=== PATIENT | female | born 1980 | race Caucasian/White ===

== ENCOUNTER 2016-10-20 14:19 | Emergency (ER) | payer MEDICAID ==
[~2016-10-20] VITALS: Ht 154.9 cm; Wt 55.8 kg
[~2016-10-20 14:19] MED LIST: DEPO SHOT; UNK ABX
[2016-10-20 14:22] VITALS: BP 116/62
--- NOTE | 2016-10-20 16:49 | NUR ---
36 YO FEMALE BIB SELF FOR LOW BACK PAIN RADIATING TO FRONT. DENIES N/V/D; SKIN IS PINK/WARM/DRY; AAOX4 WITH EVEN AND STEADY GAIT; LUNGS CLEAR BL; HR EVEN AND REGULAR; PT DENIES ANY FEVER, CP, SOB, OR COUGH AT THIS TIME; PATIENT STATES PAIN OF 9/10 AT THIS TIME; VSS; PATIENT POSITIONED FOR COMFORT; HOB ELEVATED; BEDRAILS UP X2; BED DOWN. ER MD MADE AWARE OF PT STATUS.
--- NOTE | 2016-10-20 19:15 | NUR ---
REPORT RECEIVED FROM RAHEEM MIRANDA.
--- NOTE | 2016-10-20 19:16 | NUR ---
REPORT GIVEN TO RAHEEM BISWAS
[2016-10-20] MEDS ORDERED: ACETAMINOPHEN EXTRA STRENGTH 500 MG TAB PO ONE (19:30)
[2016-10-20 19:41] VITALS: BP 105/67
--- NOTE | 2016-10-20 19:41 | NUR ---
Patient discharged with v/s stable. Written and verbal after care instructions given and explained. Patient alert, oriented and verbalized understanding of instructions. Ambulatory with steady gait. All questions addressed prior to discharge. ID band removed. Patient advised to follow up with PMD. Rx of TYLENOL AND MULTI VIT given. Patient educated on indication of medication including possible reaction and side effects. Opportunity to ask questions provided and answered.
== END 2016-10-20 19:41 | disposition home or self-care (01) ==
LOC: MED 14:19
DX: O20.0 Threatened abortion (principal); Z3A.01 Less than 8 weeks gestation of pregnancy

== ENCOUNTER 2018-01-26 12:47 | Emergency (ER) | payer MEDICAID ==
[~2018-01-26] VITALS: Ht 160 cm; Wt 55.8 kg
[2018-01-26 12:50] VITALS: BP 104/68
--- NOTE | 2018-01-26 12:55 | NUR ---
PT AMBULATED TO BED 1
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
[2018-01-26] MEDS ORDERED: KETOROLAC 30 MG/ML VIAL IVP ONE (13:40)
[2018-01-26] MEDS ORDERED: ONDANSETRON 4 MG/2 ML VIAL IVP ONE (13:40)
[2018-01-26] MEDS ORDERED: MORPHINE SULFATE 2 MG/ML SYR IVP ONE (13:40)
[2018-01-26] MEDS ORDERED: MORPHINE SULFATE 4 MG/ML SYR ONE (13:54)
[2018-01-26] MEDS: NACL 0.9% 1,000 ML IV SCH ×2 (14:24→15:52)
[2018-01-26 14:28] LABS: BASOPHILS % (AUTO) 0.4 % (0.0-2.0); EOSINOPHILS # (AUTO) 0.1 K/uL (0-0.4); EOSINOPHILS % (AUTO) 3.3 % (0.0-4.0); HEMATOCRIT 39.3 % (36-48); LYMPHOCYTES # (AUTO) 0.8 K/uL (2.5-16.5); LYMPHOCYTES % (AUTO) 18.2 % (20.5-51.1); MEAN CORPUSCULAR HEMOGLOBIN 28 pg (27-31); MEAN CORPUSCULAR HGB CONC 33 g/dL (33-37); MEAN CORPUSCULAR VOLUME 83.3 fL (80-94); MONOCYTES # (AUTO) 0.2 K/uL (0.8-1.0); MONOCYTES % (AUTO) 5.6 % (1.7-9.3); NEUTROPHILS # (AUTO) 3.1 K/uL (1.8-7.7); NEUTROPHILS % (AUTO) 72.5 % (42.2-75.2); PLATELET COUNT (AUTO) 146 K/uL (140-450); RED BLOOD CELL COUNT(AUTO) 4.72 MIL/uL (4.20-5.40); RED CELL DISTRIBUTION WIDTH 13.9 % (11.6-13.7); WHITE BLOOD COUNT (AUTO) 4.2 K/uL (4.8-10.8)
[2018-01-26 14:38] LABS: APPEARANCE,URINE CLEAR (CLEAR); BILIRUBIN,URINE NEGATIVE (NEGATIVE); BLOOD, URINE NEGATIVE (NEGATIVE); COLOR,URINE YELLOW (YELLOW); LEUKOCYTE ESTERASE ,URINE NEGATIVE (NEGATIVE); NITRITE, URINE NEGATIVE (NEGATIVE); UGLUCOSE NEGATIVE (NEGATIVE)
[2018-01-26 14:39] LABS: ANION GAP 11.2 (8-16); CARBON DIOXIDE 28.2 mmol/L (21-32); CREATININE 0.9 mg/dL (0.6-1.3); POTASSIUM 4.4 mmol/L (3.5-5.1)
[2018-01-26 14:45] LABS: ALBUMIN 4.2 g/dL (3.4-5.0); TOTAL BILIRUBIN 0.5 mg/dL (0.0-1.0)
[2018-01-26 15:45] LABS: BARBITURATE, URINE NEG. ng/ml (NEG <=200); BENZODIAZEPINE, URINE NEG. ng/mL (NEG <=200); CANNABINOID, URINE NEG. ng/mL (NEG <=50); COCAINE, URINE NEG. ng/mL (NEG <=300); OPIATE, URINE NEG. ng/mL (NEG <=2000); PHENCYCLIDINE SCREEN,URINE NEG. ng/mL (NEG <=25)
[2018-01-26] MEDS ORDERED: LACTULOSE 20 GM/30 ML UDC PO ONE (15:45)
[2018-01-26 16:15] VITALS: BP 96/62
--- NOTE | 2018-01-26 16:18 | NUR ---
Patient discharged with v/s stable. Written and verbal after care instructions given and explained. Patient alert, oriented and verbalized understanding of instructions. Ambulatory with steady gait. All questions addressed prior to discharge. ID band removed. Patient advised to follow up with PMD. Rx of reglan and colace given. Patient educated on indication of medication including possible reaction and side effects. Opportunity to ask questions provided and answered.
--- NOTE | 2018-02-03 13:16 | NUR ---
EDIT START AND END TIMES FOR NS INFUSION ON 01/26/2018: NS START TIME 1410 EVALUATED AT 1430 END TIME 1600, TOTAL AMOUNT INFUSED 1000ML
== END 2018-01-26 16:18 | disposition home or self-care (01) ==
LOC: MED 12:47
DX: K59.00 Constipation, unspecified (principal); K29.70 Gastritis, unspecified, without bleeding; R10.84 Generalized abdominal pain
CPT/HCPCS: 36415; 74176; 76705; 80053; 80305; 81003; 81025; 82150; 83690; 84703; 85025; 96361; 96374; 96375; 99285; J1885; J2270; J2405; J7030; Q0092

== ENCOUNTER 2018-01-31 14:49 | Emergency (ER) | payer MEDICAID ==
[~2018-01-31] VITALS: Ht 152.4 cm; Wt 57.4 kg
[2018-01-31 15:01] VITALS: BP 119/75
[2018-01-31] MEDS: NACL 0.9% 1,000 ML IV SCH (15:37)
[2018-01-31] MEDS: ONDANSETRON 4 MG/2 ML VIAL IVP ONE (15:38)
[2018-01-31] MEDS: ALUMINUM HYD/MAG/SIMETHICONE 30 ML, DICYCLOMINE HCL LIQUID 20 MG, LIDOCAINE VISCOUS 2% ... PO ONE ×3 (15:38)
[2018-01-31] MEDS: KETOROLAC 30 MG/ML VIAL IVP ONE (15:39)
[2018-01-31 15:43] LABS: BASOPHILS % (AUTO) 0.8 % (0.0-2.0); EOSINOPHILS # (AUTO) 0.3 K/uL (0-0.4); HEMOGLOBIN 12.1 g/dL (12.0-16.0); LYMPHOCYTES % (AUTO) 38.1 % (20.5-51.1); MEAN CORPUSCULAR HEMOGLOBIN 27 pg (27-31); MEAN CORPUSCULAR HGB CONC 33 g/dL (33-37); MEAN CORPUSCULAR VOLUME 83.7 fL (80-94); MONOCYTES # (AUTO) 0.3 K/uL (0.8-1.0); MONOCYTES % (AUTO) 5.8 % (1.7-9.3); NEUTROPHILS # (AUTO) 2.7 K/uL (1.8-7.7); NEUTROPHILS % (AUTO) 50.3 % (42.2-75.2); PLATELET COUNT (AUTO) 185 K/uL (140-450); RED BLOOD CELL COUNT(AUTO) 4.42 MIL/uL (4.20-5.40); RED CELL DISTRIBUTION WIDTH 14.1 % (11.6-13.7); WHITE BLOOD COUNT (AUTO) 5.4 K/uL (4.8-10.8)
[2018-01-31 15:51] LABS: ANION GAP 8.5 (8-16); CARBON DIOXIDE 30.4 mmol/L (21-32); CREATININE 1.1 mg/dL (0.6-1.3); POTASSIUM 3.9 mmol/L (3.5-5.1)
[2018-01-31 15:57] LABS: TOTAL BILIRUBIN 0.2 mg/dL (0.0-1.0)
[2018-01-31] MEDS: NACL 0.9% 1,000 ML IV ONE (16:35)
[2018-01-31 18:18] VITALS: BP 102/63
== END 2018-01-31 18:18 | disposition home or self-care (01) ==
LOC: MED 14:49
DX: R10.13 Epigastric pain (principal); R11.2 Nausea with vomiting, unspecified; R19.7 Diarrhea, unspecified
CPT/HCPCS: 36415; 76705; 80053; 81002; 81025; 83690; 85025; 96361; 96374; 96375; 99285; J1885; J2405; J7030; Q0092

== ENCOUNTER 2020-09-14 11:12 | Emergency (ER) | payer MEDICAID ==
[~2020-09-14] VITALS: Ht 151.1 cm; Wt 57.6 kg
[2020-09-14 11:26] VITALS: BP 110/49
--- NOTE | 2020-09-14 11:38 | NUR ---
C/O RIGHT FLANK PAIN, LOWER ABD PAIN,UPAINFUL URINATION, VAGINAL BLEEDING X 2 DAYS. 2 MONTHS.
[2020-09-14 12:07] LABS: BASOPHILS % (AUTO) 0.7 % (0.0-2.0); EOSINOPHILS # (AUTO) 0.3 K/uL (0-0.4); EOSINOPHILS % (AUTO) 5.7 % (0.0-4.0); HEMATOCRIT 39.1 % (36-48); HEMOGLOBIN 12.9 g/dL (12.0-16.0); LYMPHOCYTES # (AUTO) 1.6 K/uL (2.5-16.5); LYMPHOCYTES % (AUTO) 28.1 % (20.5-51.1); MEAN CORPUSCULAR HEMOGLOBIN 28 pg (27-31); MEAN CORPUSCULAR HGB CONC 33 g/dL (33-37); MONOCYTES # (AUTO) 0.5 K/uL (0.8-1.0); MONOCYTES % (AUTO) 8.2 % (1.7-9.3); NEUTROPHILS # (AUTO) 3.3 K/uL (1.8-7.7); NEUTROPHILS % (AUTO) 57.3 % (42.2-75.2); PLATELET COUNT (AUTO) 155 K/uL (140-450); RED BLOOD CELL COUNT(AUTO) 4.71 MIL/uL (4.20-5.40); RED CELL DISTRIBUTION WIDTH 14.6 % (11.6-13.7); WHITE BLOOD COUNT (AUTO) 5.8 K/uL (4.8-10.8)
[2020-09-14 12:23] LABS: APPEARANCE,URINE SL CLOUDY (CLEAR); BILIRUBIN,URINE NEGATIVE (NEGATIVE); BLOOD, URINE 3+ (NEGATIVE); COLOR,URINE YELLOW (YELLOW); LEUKOCYTE ESTERASE ,URINE NEGATIVE (NEGATIVE); NITRITE, URINE NEGATIVE (NEGATIVE); PH,URINE 6.5 (5.0-9.0); UGLUCOSE NEGATIVE (NEGATIVE)
[2020-09-14 12:45] LABS: RBC,URINE 11-20 (MOD) /HPF (0-5); WBC,URINE 0-5 /HPF (0-5)
--- NOTE | 2020-09-14 14:28 | NUR ---
PT LEFT WITHOUT DISCHARGE INSTRUCTIONS. CALLED PT NOT FOUND IN LOBBY.
== END 2020-09-14 14:28 | disposition home or self-care (01) ==
LOC: MED 11:12
DX: O20.0 Threatened abortion (principal); Z3A.08 8 weeks gestation of pregnancy
CPT/HCPCS: 36415; 76817; 81001; 84702; 85025; 96365; 96375; 99284

== ENCOUNTER 2022-06-14 09:44 | Emergency (ER) | payer MEDICAID ==
[~2022-06-14] VITALS: Ht 147.8 cm; Wt 63.2 kg
[2022-06-14 09:53] VITALS: BP 130/59
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
--- NOTE | 2022-06-14 10:19 | NUR ---
Dr. Weiner evaluating patient at bedside.
--- NOTE | 2022-06-14 11:23 | NUR ---
Ultrasound at bedside.
[2022-06-14 11:24] LABS: ALBUMIN 3.4 g/dL (3.4-5.0); ANION GAP 13.3 (8-16); CARBON DIOXIDE 22.3 mmol/L (21-32); CREATININE 0.6 mg/dL (0.6-1.3); POTASSIUM 3.6 mmol/L (3.5-5.1); TOTAL BILIRUBIN 0.2 mg/dL (0.0-1.0)
[2022-06-14 11:38] LABS: BASOPHILS # (AUTO) 0.1 K/uL (0.00-0.22); BASOPHILS % (AUTO) 0.8 % (0.0-2.0); EOSINOPHILS # (AUTO) 0.6 K/uL (0-0.4); EOSINOPHILS % (AUTO) 7.3 % (0.0-4.0); HEMATOCRIT 35.3 % (36-48); HEMOGLOBIN 11.9 g/dL (12.0-16.0); LYMPHOCYTES # (AUTO) 1.6 K/uL (2.5-16.5); LYMPHOCYTES % (AUTO) 20.8 % (20.5-51.1); MEAN CORPUSCULAR HEMOGLOBIN 28 pg (27-31); MEAN CORPUSCULAR HGB CONC 34 g/dL (33-37); MEAN CORPUSCULAR VOLUME 82.8 fL (80-94); MONOCYTES # (AUTO) 0.6 K/uL (0.8-1.0); MONOCYTES % (AUTO) 7.4 % (1.7-9.3); NEUTROPHILS % (AUTO) 63.7 % (42.2-75.2); PLATELET COUNT (AUTO) 154 K/uL (140-450); RED BLOOD CELL COUNT(AUTO) 4.27 MIL/uL (4.20-5.40); RED CELL DISTRIBUTION WIDTH 14.2 % (11.6-13.7); WHITE BLOOD COUNT (AUTO) 7.9 K/uL (4.8-10.8)
[2022-06-14] MEDS ORDERED: ACETAMINOPHEN 325 MG TAB PO ONE (13:55)
[2022-06-14] MEDS ORDERED: ACET-10509 PO (13:56)
[2022-06-14 15:24] VITALS: BP 115/57
--- NOTE | 2022-06-14 15:24 | NUR ---
Patient discharged with v/s stable. Written and verbal after care instructions given and explained. Patient alert, oriented and verbalized understanding of instructions. Ambulatory with steady gait. All questions addressed prior to discharge. ID band removed. Patient advised to follow up with PMD. Rx of tylenol (Sent) given. Patient educated on indication of medication including possible reaction and side effects. Opportunity to ask questions provided and answered.
== END 2022-06-14 15:24 | disposition home or self-care (01) ==
LOC: MED 09:44
DX: O20.0 Threatened abortion (principal); Z3A.08 8 weeks gestation of pregnancy
CPT/HCPCS: 36415; 76801; 80053; 81002; 81025; 83690; 84702; 85025; 99284; Q0092